=== PATIENT | female | born 1995 ===

== ENCOUNTER 2018-11-18 14:45 | Inpatient (IN) | payer OTHER ==
[~2018-11-18] VITALS: Ht 160 cm; Wt 90.7 kg
[2018-11-25] MEDS ORDERED: PRENATAL TABLE1 EAC2 PO (20:28)
[2018-11-25] MEDS ORDERED: IROSPAN 24/6 T1 EACH PO (20:29)
== END 2018-12-02 12:38 | disposition home or self-care (01) | DRG 788 ==
LOC: OB/GYN 11-25 14:45 → LDR 11-29 01:48 → OB/GYN 11-29 01:48
PROVIDERS: ADMIT Obstetrics & Gynecology
PROC: 4A1HXCZ Monitoring of Products of Conception, Cardiac Rate, External Approach (ICD-10-PCS; 2018-11-29)
PROC: 4A033R1 Measurement of Arterial Saturation, Peripheral, Percutaneous Approach (ICD-10-PCS; 2018-11-29)
PROC: 10D00Z1 Extraction of Products of Conception, Low, Open Approach (ICD-10-PCS; principal; 2018-11-29 14:30)
DX: O33.8 Maternal care for disproportion of other origin (principal); Z3A.40 40 weeks gestation of pregnancy; Z37.0 Single live birth

== ENCOUNTER 2018-11-23 12:30 | Outpatient (CLI) | payer OTHER | END 2018-11-23 13:12 | disposition home or self-care (01) | LOC: NST 12:30 | DX: Z34.83 Encounter for supervision of other normal pregnancy, third trimester (principal) ==

== ENCOUNTER 2018-11-25 20:18 | Outpatient (CLI) | payer OTHER ==
[2018-11-25] MEDS ORDERED: PRENATAL TABLE1 EAC2 PO (20:28)
[2018-11-25] MEDS ORDERED: IROSPAN 24/6 T1 EACH PO (20:29)
== END 2018-11-26 10:27 | disposition left against medical advice (07) ==
LOC: OBS/DEL 20:18
DX: O47.1 False labor at or after 37 completed weeks of gestation (principal); Z34.03 Encounter for supervision of normal first pregnancy, third trimester

== ENCOUNTER 2021-12-06 10:15 | Inpatient (IN) | payer OTHER ==
[~2021-12-06] VITALS: Ht 160 cm; Wt 3.2 kg
[~2021-12-06 10:15] MED LIST: IROSPAN 24/6 T1 EACH PO; PRENATAL TABLE1 EAC2 PO
[2021-12-10] MEDS ORDERED: PANTOPRAZOLE SO40 MG (08:17)
[2021-12-10] MEDS ORDERED: FERROUS SULFAT325 MG (08:17)
== END 2021-12-14 12:17 | disposition home or self-care (01) | DRG 785 ==
LOC: OB/GYN 12-09 18:49
PROVIDERS: ADMIT Obstetrics & Gynecology; ATTEND Obstetrics & Gynecology
PROC: 4A1HXCZ Monitoring of Products of Conception, Cardiac Rate, External Approach (ICD-10-PCS; 2021-12-09)
PROC: 0UB70ZZ Excision of Bilateral Fallopian Tubes, Open Approach (ICD-10-PCS; 2021-12-11)
PROC: 10D00Z1 Extraction of Products of Conception, Low, Open Approach (ICD-10-PCS; principal; 2021-12-11 07:00)
DX: O34.211 Maternal care for low transverse scar from previous cesarean delivery (principal); Z30.2 Encounter for sterilization; Z20.822 Contact with and (suspected) exposure to COVID-19; Z3A.39 39 weeks gestation of pregnancy; Z37.0 Single live birth